=== PATIENT | female | born 1985 | race Caucasian/White ===

== ENCOUNTER 2016-11-11 15:05 | Emergency (ER) | payer OTHER ==
[~2016-11-11 15:05] MED LIST: [UNRECOGNIZED DRUG - OTHER] PO
[2016-11-11 16:37] LABS: CONTROL LINE UCG INT CTR LINE PRESENT
[2016-11-11 16:38] LABS: BASO # 0.1 K/mm3 (0.0-0.2); BASO % 0.9 % (0.0-1.0); EOS # 0.5 K/mm3 (0.0-0.50); EOS % 5.5 % (0.0-3.0); LARGE UNSTAINED CELL # 0.1 K/mm3 (0.0-0.4); LARGE UNSTAINED CELL % 1.5 % (0.0-4.0); LYMPH # 2.4 K/mm3 (1.5-4.5); LYMPH % 25.8 % (24.0-44.0); MEAN CORPUSCULAR HEMOGLOBIN 29.3 pg (27.0-33.0); MEAN CORPUSCULAR HGB CONC 33.2 g/dl (32.0-36.5); MEAN CORPUSCULAR VOLUME 88.3 fl (80.0-96.0); MONO # 0.4 K/mm3 (0.0-0.8); NEUTROPHILS # 5.9 K/mm3 (1.8-7.7); NEUTROPHILS % 62.2 % (36.0-66.0); PLATELET COUNT, AUTOMATED 261 k/mm3 (150-450); RED CELL DISTRIBUTION WIDTH 12.3 % (11.5-14.5); WHITE BLOOD COUNT 9.4 K/mm3 (4.0-10.0)
[2016-11-11 16:47] LABS: ALBUMIN 3.8 GM/DL (3.2-5.2); ALBUMIN/GLOBULIN RATIO 1.19 (1.00-1.93); ALKALINE PHOSPHATASE 50 U/L (45-117); ALT/SGPT 16 U/L (12-78); ANION GAP 5 MEQ/L (8-16); AST/SGOT 11 U/L (15-37); BILIRUBIN,DIRECT < 0.1 MG/DL (0.0-0.2); BILIRUBIN,TOTAL 0.3 MG/DL (0.2-1.0); BLOOD UREA NITROGEN 12 MG/DL (7-18); CARBON DIOXIDE LEVEL 30 MEQ/L (21-32); CHLORIDE LEVEL 107 MEQ/L (98-107); GLOMERULAR FILTRATION RATE > 60.0 (>60); GLUCOSE, FASTING 89 MG/DL (70-105); POTASSIUM SERUM 3.9 MEQ/L (3.5-5.1); SODIUM LEVEL 142 MEQ/L (136-145)
[2016-11-11] MEDS ORDERED: KETOROLAC 30 MG/ML VIAL (J1885) As Ordered ONE (16:52)
[2016-11-11] MEDS ORDERED: ISOVUE-370 76% 100ML VIAL (Q9967) As Ordered ONE (17:18)
--- NOTE | 2016-11-11 17:40 | REPUSA ---
CT of the abdomen and pelvis with contrast Clinical statement: Pain. Technique: Multiple axial CT images were obtained from the base of the lungs through the floor of the pelvis utilizing 5 mm axial slices after administration of nonionic intravenous contrast. Coronal an d sagittal reconstructions were also obtained. No comparison is available. Findings: Chest: The visualized lung bases are clear. Abdomen: The liver, spleen, pancreas, kidneys, gallbladder, and adrenal glands are unremarkable. The aorta is within normal limits. There is no evidence of abdominal lymphadenopathy or ascites. Pelvis: The bowel is unremarkable, with no obstructive or inflammatory changes. The appendix is moody l. The urinary bladder is within normal limits. The other pelvic structures appear grossly intact. Th ere is no evidence of pelvic lymphadenopathy or ascites. Bones: There are no suspicious osseous abnormalities seen. Impression: Unremarkable CT examination of the abdomen and pelvis. The appendix is unremarkable.
--- NOTE | 2016-11-11 18:19 | EDDOCDS ---
Nurse's Notes [facility] Name: Tisha Weiss Age: 31 yrs Sex: Female : 1985 Arrival Date: 11/11/2016 Time: 15:05 Bed I2 / M2 Private MD: Luciano, [facility] Diagnosis: Pelvic and perineal pain Presentation: 11/11 15:08 Presenting complaint: Patient states: RLQ pain for 3 days. has tried Tylenol/Motrin rs3 without relief. denies nausea/vomiting/diarrhea. Risk factors: the patient reports no vaginal bleeding. Adult Sepsis Screening: The patient does not have new or worsening altered mentation. Patient's respiratory rate is less than 22. Systolic blood pressure is greater than 100. Patient has a qSOFA score of 0- Negative Sepsis Screen. Suicide/Homicide risk assessment- the patient denies having any suicidal and/or homicidal ideations and does not present with any other emotional, behavioral or mental health complaints. 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 Transition of care: patient was not received from another setting of care. 15:08 Acuity: JODY Level 3 rs3 15:08 Method Of Arrival: Walkin/Carried/Asstd rs3 Triage Assessment: 15:10 General: Appears in no apparent distress. Pain: Location: right lower quadrant. HIV rs3 screening NA for this visit Offered previously. GI: Reports lower abdominal pain. 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 none - PMHx: none; - PSHx: ; - Social history: Smoking status: Patient uses tobacco products, light tobacco smoker. No barriers to communication noted, The patient speaks fluent Maori. - Family history: Not pertinent. - : The pt / caregiver states he / she is not on anticoagulants. Home medication list is obtained from the patient. - Exposure Risk Screening:: None identified. Screenin:20 Screening information is obtained from the patient. Fall risk: No risks identified. ck1 Assistance ADL's: requires no assistance with activities of daily living. Abuse/DV Screen: The patient / caregiver reports he/she is: not in a situation that causes fear, pain or injury. Nutritional screening: No deficits noted. Advance Directives: Currently, there is no health care proxy. home support is adequate. Assessment: 16:20 General: Appears in no apparent distress, Behavior is appropriate for age, cooperative. ck1 Pain: Location: right lower quadrant Pain currently is 9.5 out of 10 on a pain scale. Neurological: No deficits noted. GI: Abdomen is flat, non- distended Bowel sounds present X 4 quads. Abd is tender to palpation in right lower quadrant Denies constipation, diarrhea, nausea, vomiting. : Denies burning with urination, urinary frequency, vaginal bleeding. Derm: Skin is intact, is healthy with good turgor, Skin is pink, warm & dry. 16:55 General: Appears in no apparent distress, comfortable, Behavior is appropriate for age, jmb cooperative, Patient returned from ultrasound. Patient currently laying in bed, appears comfortable, significant other at bedside. Patient voices no complaints at this time. . Neurological: Level of Consciousness is awake, alert, obeys commands, Oriented to person, place, time, Speech is normal, Facial symmetry appears normal, Facial symmetry: tongue is midline. Cardiovascular: Capillary refill < 3 seconds Heart tones S1 S2 present Pulses are all present. Respiratory: Airway is patent Respiratory effort is even, unlabored, Respiratory pattern is regular, symmetrical. 17:50 General: Appears in no apparent distress, comfortable, Behavior is appropriate for age, jmb cooperative, Patient laying on stretcher with family at bedside. No voiced complaints at this time. . Neurological: Level of Consciousness is awake, alert, obeys commands, Oriented to person, place, time. Respiratory: Airway is patent Respiratory effort is even, unlabored, Respiratory pattern is regular, symmetrical. 18:16 General: Patient instructed on discharge instructions. Patient asked if there were any b questions regarding discharge, patient stated no. IV discontinued per hospital policy. Patient signed discharge instructions. Patient discharged in stable condition. . Vital Signs: 15:07 BP 127 / 68 RA Sitting (auto/lg); Pulse 80; Resp 16; Temp 98.3(O); Pulse Ox 100% on bnb R/A; Weight 58.97 kg; Height 5 ft. 2 in. (157.48 cm); Pain 8/10; 18:14 BP 108 / 73; Pulse 87; Resp 18; Temp 98.1(O); Pulse Ox 100% on R/A; Pain 4/10; elp 15:07 Body Mass Index 23.78 (58.97 kg, 157.48 cm) b Vitals: 15:07 Log In Time: November 11, 2016 at 15:05. bnb ED Course: 15:06 Patient visited by Alondra Osorio PCA. bnb 15:06 Patient moved to Waiting bnb 15:07 [facility] is Private Physician. bnb 15:08 Patient visited by Alondra Osorio PCA. bnb 15:08 Patient moved to Pre RCE bnb 15:10 Triage Initiated rs3 15:11 Patient moved to Triage 1 rs3 16:01 Jabier Hoffman PA is PHCP. mo1 16:02 Socorro Shirley MD is Attending Physician. mo1 16:09 Patient visited by Jabier Hoffman PA. mo1 16:10 Patient moved to I2 / M2 pml 16:12 Urinalysis Sent. ar3 16:12 Urine Test-In Lab Sent. ar3 16:12 Urine Culture Sent. ar3 16:19 Basic Metabolic Profile Sent. ck1 16:19 CBC with Diff Sent. ck1 16:19 Lipase Sent. ck1 16:19 Liver Profile Sent. ck1 16:20 The patient / caregiver is instructed regarding the plan of care and ED course. ck1 16:20 Inserted saline lock: 20 gauge in right antecubital area and blood collected. The ck1 patient tolerated the procedure well. 16:27 Patient moved to Ultrasound hgl 16:48 Patient moved to I2 / M2 hgl 16:56 Patient visited by Seng Osorio RN. jmb 17:29 Patient visited by Ignacia Jacobsen RN. ck1 17:51 Patient visited by Seng Osorio,DAVID. jmb 18:02 [facility] Payment Agreement was scanned into [employer] and attached to record. zo 18:09 [facility] is Referral Physician. mo1 18:14 Patient visited by Tori Duncan PCA. elp 18:16 CT ABD & PELVIS: IV Contrast Only Returned. EDMS 18:16 Discontinued lock intact, bleeding controlled, pressure dressing applied, No jmb redness/swelling at site. No procedures done that require assistance. Administered Medications: 16:17 Drug: NS 0.9% 1000 ml [sodium chloride 0.9 % intravenous solution] Route: IV; Rate: jmb bolus; Site: right antecubital; 16:55 Drug: ketorolac 30 mg [ketorolac 30 mg/mL (1 mL) injection solution (1 mL)] Route: IVP; jmb Site: right antecubital; Order Results: Lab Order: Basic Metabolic Profile; SPEC'M 11/11/16 16:18 Test: GLUCOSE, FASTING; Value: 89; Range: 70-105; Units: MG/DL; Status: F Test: BLOOD UREA NITROGEN; Value: 12; Range: 7-18; Units: MG/DL; Status: F Test: CREATININE FOR GFR; Value: 0.80; Range: 0.55-1.02; Units: MG/DL; Status: F Test: GLOMERULAR FILTRATION RATE; Value: > 60.0; Range: >60; Status: F Test: SODIUM LEVEL; Value: 142; Range: 136-145; Units: MEQ/L; Status: F Test: POTASSIUM SERUM; Value: 3.9; Range: 3.5-5.1; Units: MEQ/L; Status: F Test: CHLORIDE LEVEL; Value: 107; Range: 98-107; Units: MEQ/L; Status: F Test: CARBON DIOXIDE LEVEL; Value: 30; Range: 21-32; Units: MEQ/L; Status: F Test: ANION GAP; Value: 5; Range: 8-16; Abnormal: Below low normal; Units: MEQ/L; Status: F Test: CALCIUM LEVEL; Value: 9.0; Range: 8.5-10.1; Units: MG/DL; Status: F Test Note: ; Units are mL/min/1.73 m2 Chronic Kidney Disease Staging per NKF: Stage I & II GFR >=60 Normal to Mildly Decreased Stage III GFR 30-59 Moderately Decreased Stage IV GFR 15-29 Severely Decreased Stage V GFR <15 Very Little GFR Left ESRD GFR <15 on ASSISTANT FOOD SERVICE DIRECTOR Lab Order: CBC with Diff; SPEC'11/11/16 16:18 Test: WHITE BLOOD COUNT; Value: 9.4; Range: 4.0-10.0; Units: K/mm3; Status: F Test: RED BLOOD COUNT; Value: 4.70; Range: 4.00-5.40; Units: M/mm3; Status: F Test: HEMOGLOBIN; Value: 13.8; Range: 12.0-16.0; Units: g/dl; Status: F Test: HEMATOCRIT; Value: 41.5; Range: 36.0-47.0; Units: %; Status: F Test: MEAN CORPUSCULAR VOLUME; Value: 88.3; Range: 80.0-96.0; Units: fl; Status: F Test: MEAN CORPUSCULAR HEMOGLOBIN; Value: 29.3; Range: 27.0-33.0; Units: pg; Status: F Test: MEAN CORPUSCULAR HGB CONC; Value: 33.2; Range: 32.0-36.5; Units: g/dl; Status: F Test: RED CELL DISTRIBUTION WIDTH; Value: 12.3; Range: 11.5-14.5; Units: %; Status: F Test: PLATELET COUNT, AUTOMATED; Value: 261; Range: 150-450; Units: k/mm3; Status: F Test: NEUTROPHILS %; Value: 62.2; Range: 36.0-66.0; Units: %; Status: F Test: LYMPH %; Value: 25.8; Range: 24.0-44.0; Units: %; Status: F Test: MONO %; Value: 4.0; Range: 0.0-5.0; Units: %; Status: F Test: EOS %; Value: 5.5; Range: 0.0-3.0; Abnormal: Above high normal; Units: %; Status: F Test: BASO %; Value: 0.9; Range: 0.0-1.0; Units: %; Status: F Test: LARGE UNSTAINED CELL %; Value: 1.5; Range: 0.0-4.0; Units: %; Status: F Test: NEUTROPHILS #; Value: 5.9; Range: 1.8-7.7; Units: K/mm3; Status: F Test: LYMPH #; Value: 2.4; Range: 1.5-4.5; Units: K/mm3; Status: F Test: MONO #; Value: 0.4; Range: 0.0-0.8; Units: K/mm3; Status: F Test: EOS #; Value: 0.5; Range: 0.0-0.50; Units: K/mm3; Status: F Test: BASO #; Value: 0.1; Range: 0.0-0.2; Units: K/mm3; Status: F Test: LARGE UNSTAINED CELL #; Value: 0.1; Range: 0.0-0.4; Units: K/mm3; Status: F Lab Order: Lipase; [facility] 11/11/16 16:18 Test: LIPASE; Value: 326; Range: 73-393; Units: U/L; Status: F Lab Order: Liver Profile; [facility] 11/11/16 16:18 Test: AST/SGOT; Value: 11; Range: 15-37; Abnormal: Below low normal; Units: U/L; Status: F Test: ALT/SGPT; Value: 16; Range: 12-78; Units: U/L; Status: F Test: ALKALINE PHOSPHATASE; Value: 50; Range: 45-117; Units: U/L; Status: F Test: BILIRUBIN,TOTAL; Value: 0.3; Range: 0.2-1.0; Units: MG/DL; Status: F Test: BILIRUBIN,DIRECT; Value: < 0.1; Range: 0.0-0.2; Units: MG/DL; Status: F Test: TOTAL PROTEIN; Value: 7.0; Range: 6.4-8.2; Units: GM/DL; Status: F Test: ALBUMIN; Value: 3.8; Range: 3.2-5.2; Units: GM/DL; Status: F Test: ALBUMIN/GLOBULIN RATIO; Value: 1.19; Range: 1.00-1.93; Status: F Lab Order: Urinalysis; [facility] 11/11/16 16:12 Test: APPEARANCE, URINE; Value: CLEAR; Range: CLEAR; Status: F Test: COLOR, URINE; Value: YELLOW; Range: YELLOW; Status: F Test: PH,URINE; Value: 6.0; Range: 5.0-9.0; Units: UNITS; Status: F Test: SPECIFIC GRAVITY URINE AUTO; Value: 1.013; Range: 1.002-1.035; Status: F Test: PROTEIN, URINE AUTO; Value: NEGATIVE; Range: NEGATIVE; Units: mg/dL; Status: F Test: GLUCOSE, URINE (UA) AUTO; Value: NEGATIVE; Range: NEGATIVE; Units: mg/dL; Status: F Test: KETONE, URINE AUTO; Value: NEGATIVE; Range: NEGATIVE; Units: mg/dL; Status: F Test: UROBILINOGEN, URINE AUTO; Value: 0.2; Range: 0.0-2.0; Units: mg/dL; Status: F Test: BILIRUBIN, URINE AUTO; Value: NEGATIVE; Range: NEGATIVE; Status: F Test: NITRITE, URINE AUTO; Value: NEGATIVE; Range: NEGATIVE; Status: F Test: LEUKOCYTE ESTERASE, URINE AUTO; Value: NEGATIVE; Range: NEGATIVE; Status: F Test: BLOOD, URINE BLOOD; Value: NEGATIVE; Range: NEGATIVE; Status: F Test: WBC, URINE AUTO; Value: 1; Range: 0-3; Units: /HPF; Status: F Test: RBC, URINE AUTO; Value: 1; Range: 0-3; Units: /HPF; Status: F Test: BACTERIA, URINE AUTO; Value: NEGATIVE; Range: NEGATIVE; Status: F Test: SQUAMOUS EPITHELIAL CELL UR AU; Value: 1; Range: 0-6; Units: /HPF; Status: F Test: MUCUS, URINE; Value: SMALL; Range: NEGATIVE; Status: F Test: HYALINE CAST, URINE AUTO; Value: 0; Range: 0-1; Units: /LPF; Status: F Lab Order: Urine Test-In Lab; SPEC'M 11/11/16 16:12 Test: URINE PREG TEST; Value: NEGATIVE; Range: NEGATIVE; Status: F Radiology Order: CT ABD & PELVIS: IV Contrast Only Test: CT ABD & PELVIS: IV Contrast Only REASON FOR EXAMINATION: Appendicitis; ; CT of the abdomen and pelvis with contrast; Clinical statement: Pain.; Technique: Multiple axial CT images were obtained from the base of the lungs through the floor of the; pelvis utilizing 5 mm axial slices after administration of nonionic intravenous contrast. Coronal an; d sagittal reconstructions were also obtained.; No comparison is available.; Findings:; Chest: The visualized lung bases are clear.; Abdomen: The liver, spleen, pancreas, kidneys, gallbladder, and adrenal glands are unremarkable. The; aorta is within normal limits. There is no evidence of abdominal lymphadenopathy or ascites.; Pelvis: The bowel is unremarkable, with no obstructive or inflammatory changes. The appendix is moody; l. The urinary bladder is within normal limits. The other pelvic structures appear grossly intact. Th; ere is no evidence of pelvic lymphadenopathy or ascites.; Bones: There are no suspicious osseous abnormalities seen.; Impression: Unremarkable CT examination of the abdomen and pelvis. The appendix is unremarkable.; ; Outcome: 18:09 Discharge ordered by Provider. mo1 18:16 Discharge Assessment: Patient awake, alert and oriented x 3. No cognitive and/or jmb functional deficits noted. Patient verbalized understanding of disposition instructions. Patient awake and alert. obeys commands, Oriented to person, place and time. Patient verbalized understanding of disposition instructions. Patient has no functional deficits. patient administered narcotics - no. The following High Risk Discharge criteria are identified: None. Discharged to home ambulatory, with significant other. Condition: stable Condition: improved. Discharge instructions given to patient, Instructed on discharge instructions, follow up and referral plans. Demonstrated understanding of instructions, Pt was receptive of discharge instructions/ teaching. Ultrasound Study completed. Property sent home with patient. 18:18 CT Study completed. jmb 18:18 Patient left the ED. wally Signatures: Dispatcher [employer] EDMS Ignacia Jacobsen,RN RN ck1 Cecy Henderson Jessica, RN RN Yuni Lion,RN RN rs3 Tabby Davalos, CRAYON PAINTER CRAYON PAINTER ar3 Mellissa HoffmannRN DAVID pml Shama, Harpal luis carlosl Jabier Hoffman PA PA mo1 Tori Duncan, CRAYON PAINTER CRAYON PAINTER Seng Oscar RN RN jmb Becker, Brittney, CRAYON PAINTER CRAYON PAINTER bnb MTDD
--- NOTE | 2016-11-11 18:19 | EDDOCDS ---
Physician Documentation [facility] Name: Tisha Weiss Age: 31 yrs Sex: Female : 1985 Arrival Date: 11/11/2016 Time: 15:05 Bed I2 / M2 Private MD: Laz Wolf [facility] Disposition: 11/11/16 18:09 Discharged to Home/Self Care. Impression: Pelvic and perineal pain. - Condition is Stable. - Discharge Instructions: Abdominal Pain, Adult, Pelvic Pain, Female. - Medication Reconciliation, Local Pharmacy Hours form. - Follow up: Luciano [facility] Seth; When: Call to arrange an appointment; Reason: Recheck today's complaints, Continuance of care. - Problem is new. - Symptoms are unchanged. Historical: - Allergies: no known allergies; - Home Meds: 1. none - PMHx: none; - PSHx: ; - Social history: Smoking status: Patient uses tobacco products, light tobacco smoker. No barriers to communication noted, The patient speaks fluent Kyrgyz. - Family history: Not pertinent. - : The pt / caregiver states he / she is not on anticoagulants. Home medication list is obtained from the patient. - Exposure Risk Screening:: None identified. 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 2 in. (157.48 cm); Pain 8/10; 18:14 BP 108 / 73; Pulse 87; Resp 18; Temp 98.1(O); Pulse Ox 100% on R/A; Pain 4/10; elp 15:07 Body Mass Index 23.78 (58.97 kg, 157.48 cm) bnb MDM: 16:10 NS 0.9% 1000 ml IV at bolus once ordered. mo1 16:10 ketorolac 30 mg IVP once ordered. mo1 16:10 Undress patient appropriately for examination ordered. mo1 16:11 Basic Metabolic Profile Ordered. EDMS 16:11 CBC with Diff Ordered. EDMS 16:11 Lipase Ordered. EDMS 16:11 Liver Profile Ordered. EDMS 16:11 Urinalysis Ordered. EDMS 16:11 Urine Test-In Lab Ordered. EDMS 16:11 Urine Culture Ordered. EDMS 16:11 NOTHING BY MOUTH+DIET ordered. EDMS 16:11 -US Pelvic Non-Ob Complete Ordered. EDMS 16:12 DUPLEX SCAN LIMITED (DOPPLER)+US Ordered. EDMS 16:37 Transvaginal NON- US Ordered. EDMS 16:45 CBC with Diff Reviewed. mo1 16:45 Urinalysis Reviewed. mo1 16:45 Urine Test-In Lab Reviewed. mo1 16:51 Basic Metabolic Profile Reviewed. mo1 16:52 Liver Profile Reviewed. mo1 16:52 Lipase Reviewed. mo1 17:15 CT ABD & PELVIS: IV Contrast Only Ordered. EDMS 17:47 Financial registration complete. zo 18:02 [facility] Payment Agreement was scanned into [employer] and attached to record. zo Administered Medications: 16:17 Drug: NS 0.9% 1000 ml [sodium chloride 0.9 % intravenous solution] Route: IV; Rate: jmb bolus; Site: right antecubital; 16:55 Drug: ketorolac 30 mg [ketorolac 30 mg/mL (1 mL) injection solution (1 mL)] Route: IVP; jmb Site: right antecubital; Signatures: Dispatcher [employer] Ignacia Kelley,RN RN ck1 Cecy Henderson Rosemary, RN RN rs3 Jabier Hoffman PA PA mo1 Seng Osorio RN RN jmb The chart was reviewed and I authenticate all verbal orders and agree with the evaluation and treatment provided.Attachments: 18:02 [facility] Payment Agreement zo MTDD
--- NOTE | 2016-11-12 07:34 | REP ---
PELVIC ULTRASOUND AND ENDOVAGINAL PROBE PELVIC ULTRASOUND: 11/11/2016. Clinical history: Right sided pelvic pain. Comparison: CT abdomen and pelvis 03/27/2015. Findings: Transabdominal images performed with the bladder empty and an endovaginal probe utilized. The uterus is anteverted and measures 8.7 x 4.7 x 6 cm. The central endometrial echogenic stripe is somewhat thickened and it measures up to 16.2 mm. There is no fluid in endometrial cavity or endocervical canal. There is no free fluid in the cul-de-sac. Both ovaries are seen with the right 3.2 x 1.8 x 2.3 cm and the left 3.4 x 2.3 x 2.8 cm. Doppler tracing show resistive index 0.59 on the right and 0.50 on the left, no evidence of torsion. No adjacent fluid. Subcentimeter follicles seen in the ovaries. Exam is somewhat limited due to poor patient pain tolerance during the exam. Impression: 1. The uterus anteverted with somewhat thickened endometrium which appears slightly heterogeneous but limited in evaluation. No fluid in the endometrial cavity or endocervical canal. 2. No uterine mass or contour abnormality. No free fluid in the cul-de-sac. 3. Ovaries fairly symmetric in size with normal blood flow and no adjacent free fluid. No torsion with normal Doppler. Signed by Darryl Das MD 11/12/2016 09:19 A
--- NOTE | 2016-11-13 19:19 | EDDOCDS ---
Physician Documentation [facility] Name: Tisha Weiss Age: 31 yrs Sex: Female : 1985 Arrival Date: 11/11/2016 Time: 15:05 Bed I2 / M2 Private MD: Laz Wolf [facility] Disposition: 11/11/16 18:09 Discharged to Home/Self Care. Impression: Pelvic and perineal pain. - Condition is Stable. - Discharge Instructions: Abdominal Pain, Adult, Pelvic Pain, Female. - Medication Reconciliation, Local Pharmacy Hours form. - Follow up: Luciano [facility] Seth; When: Call to arrange an appointment; Reason: Recheck today's complaints, Continuance of care. - Problem is new. - Symptoms are unchanged. Historical: - Allergies: no known allergies; - Home Meds: 1. none - PMHx: none; - PSHx: ; - Social history: Smoking status: Patient uses tobacco products, light tobacco smoker. No barriers to communication noted, The patient speaks fluent Ukrainian. - Family history: Not pertinent. - : The pt / caregiver states he / she is not on anticoagulants. Home medication list is obtained from the patient. - Exposure Risk Screening:: None identified. 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 2 in. (157.48 cm); Pain 8/10; 18:14 BP 108 / 73; Pulse 87; Resp 18; Temp 98.1(O); Pulse Ox 100% on R/A; Pain 4/10; elp 15:07 Body Mass Index 23.78 (58.97 kg, 157.48 cm) bnb MDM: 16:10 NS 0.9% 1000 ml IV at bolus once ordered. mo1 16:10 ketorolac 30 mg IVP once ordered. mo1 16:10 Undress patient appropriately for examination ordered. mo1 16:11 Basic Metabolic Profile Ordered. EDMS 16:11 CBC with Diff Ordered. EDMS 16:11 Lipase Ordered. EDMS 16:11 Liver Profile Ordered. EDMS 16:11 Urinalysis Ordered. EDMS 16:11 Urine Test-In Lab Ordered. EDMS 16:11 Urine Culture Ordered. EDMS 16:11 NOTHING BY MOUTH+DIET ordered. EDMS 16:11 -US Pelvic Non-Ob Complete Ordered. EDMS 16:12 DUPLEX SCAN LIMITED (DOPPLER)+US Ordered. EDMS 16:37 Transvaginal NON- US Ordered. EDMS 16:45 CBC with Diff Reviewed. mo1 16:45 Urinalysis Reviewed. mo1 16:45 Urine Test-In Lab Reviewed. mo1 16:51 Basic Metabolic Profile Reviewed. mo1 16:52 Liver Profile Reviewed. mo1 16:52 Lipase Reviewed. mo1 17:15 CT ABD & PELVIS: IV Contrast Only Ordered. EDMS 17:47 Financial registration complete. zo 18:02 [facility] Payment Agreement was scanned into [employer] and attached to record. zo 11/12 11:10 T-Sheet-- Draft Copy was scanned into [employer] and attached to record. gb 11:10 Radiology Report was scanned into [employer] and attached to record. gb Administered Medications: 02 16:17 Drug: NS 0.9% 1000 ml [sodium chloride 0.9 % intravenous solution] Route: IV; Rate: jmb bolus; Site: right antecubital; 16:55 Drug: ketorolac 30 mg [ketorolac 30 mg/mL (1 mL) injection solution (1 mL)] Route: IVP; jmb Site: right antecubital; Signatures: Dispatcher [employer] EDKaylyn Mar, Reg Reg gb Ignacia JacobsenRN RN ck1 Cecy Henderson RosemaryRN RN rs3 Jabier Hoffman PA PA mo1 Seng Osorio RN RN janetteb The chart was reviewed and I authenticate all verbal orders and agree with the evaluation and treatment provided.Attachments: 18:02 [facility] Payment Agreement zo 11/12 11:10 T-Sheet-- Draft Copy gb Chart Complete MTDD
--- NOTE | 2016-11-13 19:19 | EDDOCDS ---
Nurse's Notes [facility] Name: Tisha Weiss Age: 31 yrs Sex: Female : 1985 Arrival Date: 11/11/2016 Time: 15:05 Bed I2 / M2 Private MD: Luciano, [facility] Diagnosis: Pelvic and perineal pain Presentation: 11/11 15:08 Presenting complaint: Patient states: RLQ pain for 3 days. has tried Tylenol/Motrin rs3 without relief. denies nausea/vomiting/diarrhea. Risk factors: the patient reports no vaginal bleeding. Adult Sepsis Screening: The patient does not have new or worsening altered mentation. Patient's respiratory rate is less than 22. Systolic blood pressure is greater than 100. Patient has a qSOFA score of 0- Negative Sepsis Screen. Suicide/Homicide risk assessment- the patient denies having any suicidal and/or homicidal ideations and does not present with any other emotional, behavioral or mental health complaints. 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 Transition of care: patient was not received from another setting of care. 15:08 Acuity: JODY Level 3 rs3 15:08 Method Of Arrival: Walkin/Carried/Asstd rs3 Triage Assessment: 15:10 General: Appears in no apparent distress. Pain: Location: right lower quadrant. HIV rs3 screening NA for this visit Offered previously. GI: Reports lower abdominal pain. 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 none - PMHx: none; - PSHx: ; - Social history: Smoking status: Patient uses tobacco products, light tobacco smoker. No barriers to communication noted, The patient speaks fluent Danish. - Family history: Not pertinent. - : The pt / caregiver states he / she is not on anticoagulants. Home medication list is obtained from the patient. - Exposure Risk Screening:: None identified. Screenin:20 Screening information is obtained from the patient. Fall risk: No risks identified. ck1 Assistance ADL's: requires no assistance with activities of daily living. Abuse/DV Screen: The patient / caregiver reports he/she is: not in a situation that causes fear, pain or injury. Nutritional screening: No deficits noted. Advance Directives: Currently, there is no health care proxy. home support is adequate. Assessment: 16:20 General: Appears in no apparent distress, Behavior is appropriate for age, cooperative. ck1 Pain: Location: right lower quadrant Pain currently is 9.5 out of 10 on a pain scale. Neurological: No deficits noted. GI: Abdomen is flat, non- distended Bowel sounds present X 4 quads. Abd is tender to palpation in right lower quadrant Denies constipation, diarrhea, nausea, vomiting. : Denies burning with urination, urinary frequency, vaginal bleeding. Derm: Skin is intact, is healthy with good turgor, Skin is pink, warm & dry. 16:55 General: Appears in no apparent distress, comfortable, Behavior is appropriate for age, jmb cooperative, Patient returned from ultrasound. Patient currently laying in bed, appears comfortable, significant other at bedside. Patient voices no complaints at this time. . Neurological: Level of Consciousness is awake, alert, obeys commands, Oriented to person, place, time, Speech is normal, Facial symmetry appears normal, Facial symmetry: tongue is midline. Cardiovascular: Capillary refill < 3 seconds Heart tones S1 S2 present Pulses are all present. Respiratory: Airway is patent Respiratory effort is even, unlabored, Respiratory pattern is regular, symmetrical. 17:50 General: Appears in no apparent distress, comfortable, Behavior is appropriate for age, jmb cooperative, Patient laying on stretcher with family at bedside. No voiced complaints at this time. . Neurological: Level of Consciousness is awake, alert, obeys commands, Oriented to person, place, time. Respiratory: Airway is patent Respiratory effort is even, unlabored, Respiratory pattern is regular, symmetrical. 18:16 General: Patient instructed on discharge instructions. Patient asked if there were any b questions regarding discharge, patient stated no. IV discontinued per hospital policy. Patient signed discharge instructions. Patient discharged in stable condition. . Vital Signs: 15:07 BP 127 / 68 RA Sitting (auto/lg); Pulse 80; Resp 16; Temp 98.3(O); Pulse Ox 100% on bnb R/A; Weight 58.97 kg; Height 5 ft. 2 in. (157.48 cm); Pain 8/10; 18:14 BP 108 / 73; Pulse 87; Resp 18; Temp 98.1(O); Pulse Ox 100% on R/A; Pain 4/10; elp 15:07 Body Mass Index 23.78 (58.97 kg, 157.48 cm) b Vitals: 15:07 Log In Time: November 11, 2016 at 15:05. bnb ED Course: 15:06 Patient visited by Alondra Osorio PCA. bnb 15:06 Patient moved to Waiting bnb 15:07 [facility] is Private Physician. bnb 15:08 Patient visited by Alondra Osorio PCA. bnb 15:08 Patient moved to Pre RCE bnb 15:10 Triage Initiated rs3 15:11 Patient moved to Triage 1 rs3 16:01 Jabier Hoffman PA is PHCP. mo1 16:02 Socorro Shirley MD is Attending Physician. mo1 16:09 Patient visited by Jabier Hoffman PA. mo1 16:10 Patient moved to I2 / M2 pml 16:12 Urinalysis Sent. ar3 16:12 Urine Test-In Lab Sent. ar3 16:12 Urine Culture Sent. ar3 16:19 Basic Metabolic Profile Sent. ck1 16:19 CBC with Diff Sent. ck1 16:19 Lipase Sent. ck1 16:19 Liver Profile Sent. ck1 16:20 The patient / caregiver is instructed regarding the plan of care and ED course. ck1 16:20 Inserted saline lock: 20 gauge in right antecubital area and blood collected. The ck1 patient tolerated the procedure well. 16:27 Patient moved to Ultrasound hgl 16:48 Patient moved to I2 / M2 hgl 16:56 Patient visited by Seng Osorio,DAVID. jmb 17:29 Patient visited by Ignacia Jacobsen RN. ck1 17:51 Patient visited by Seng Osorio,DAVID. jmb 18:02 [facility] Payment Agreement was scanned into myinfoQ and attached to record. zo 18:09 [facility] is Referral Physician. mo1 18:14 Patient visited by Tori Duncan PCA. elp 18:16 CT ABD & PELVIS: IV Contrast Only Returned. EDMS 18:16 Discontinued lock intact, bleeding controlled, pressure dressing applied, No jmb redness/swelling at site. No procedures done that require assistance. 11/12 07:46 -US Pelvic Non-Ob Complete Returned. EDMS 11:10 T-Sheet-- Draft Copy was scanned into myinfoQ and attached to record. gb 11:10 Radiology Report was scanned into myinfoQ and attached to record. gb Administered Medications: 11/11 16:17 Drug: NS 0.9% 1000 ml [sodium chloride 0.9 % intravenous solution] Route: IV; Rate: jmb bolus; Site: right antecubital; 16:55 Drug: ketorolac 30 mg [ketorolac 30 mg/mL (1 mL) injection solution (1 mL)] Route: IVP; jmb Site: right antecubital; Order Results: Lab Order: Basic Metabolic Profile; SPEC'M 11/11/16 16:18 Test: GLUCOSE, FASTING; Value: 89; Range: 70-105; Units: MG/DL; Status: F Test: BLOOD UREA NITROGEN; Value: 12; Range: 7-18; Units: MG/DL; Status: F Test: CREATININE FOR GFR; Value: 0.80; Range: 0.55-1.02; Units: MG/DL; Status: F Test: GLOMERULAR FILTRATION RATE; Value: > 60.0; Range: >60; Status: F Test: SODIUM LEVEL; Value: 142; Range: 136-145; Units: MEQ/L; Status: F Test: POTASSIUM SERUM; Value: 3.9; Range: 3.5-5.1; Units: MEQ/L; Status: F Test: CHLORIDE LEVEL; Value: 107; Range: 98-107; Units: MEQ/L; Status: F Test: CARBON DIOXIDE LEVEL; Value: 30; Range: 21-32; Units: MEQ/L; Status: F Test: ANION GAP; Value: 5; Range: 8-16; Abnormal: Below low normal; Units: MEQ/L; Status: F Test: CALCIUM LEVEL; Value: 9.0; Range: 8.5-10.1; Units: MG/DL; Status: F Test Note: ; Units are mL/min/1.73 m2 Chronic Kidney Disease Staging per NKF: Stage I & II GFR >=60 Normal to Mildly Decreased Stage III GFR 30-59 Moderately Decreased Stage IV GFR 15-29 Severely Decreased Stage V GFR <15 Very Little GFR Left ESRD GFR <15 on DSP ENGINEER Lab Order: CBC with Diff; SPEC'M 11/11/16 16:18 Test: WHITE BLOOD COUNT; Value: 9.4; Range: 4.0-10.0; Units: K/mm3; Status: F Test: RED BLOOD COUNT; Value: 4.70; Range: 4.00-5.40; Units: M/mm3; Status: F Test: HEMOGLOBIN; Value: 13.8; Range: 12.0-16.0; Units: g/dl; Status: F Test: HEMATOCRIT; Value: 41.5; Range: 36.0-47.0; Units: %; Status: F Test: MEAN CORPUSCULAR VOLUME; Value: 88.3; Range: 80.0-96.0; Units: fl; Status: F Test: MEAN CORPUSCULAR HEMOGLOBIN; Value: 29.3; Range: 27.0-33.0; Units: pg; Status: F Test: MEAN CORPUSCULAR HGB CONC; Value: 33.2; Range: 32.0-36.5; Units: g/dl; Status: F Test: RED CELL DISTRIBUTION WIDTH; Value: 12.3; Range: 11.5-14.5; Units: %; Status: F Test: PLATELET COUNT, AUTOMATED; Value: 261; Range: 150-450; Units: k/mm3; Status: F Test: NEUTROPHILS %; Value: 62.2; Range: 36.0-66.0; Units: %; Status: F Test: LYMPH %; Value: 25.8; Range: 24.0-44.0; Units: %; Status: F Test: MONO %; Value: 4.0; Range: 0.0-5.0; Units: %; Status: F Test: EOS %; Value: 5.5; Range: 0.0-3.0; Abnormal: Above high normal; Units: %; Status: F Test: BASO %; Value: 0.9; Range: 0.0-1.0; Units: %; Status: F Test: LARGE UNSTAINED CELL %; Value: 1.5; Range: 0.0-4.0; Units: %; Status: F Test: NEUTROPHILS #; Value: 5.9; Range: 1.8-7.7; Units: K/mm3; Status: F Test: LYMPH #; Value: 2.4; Range: 1.5-4.5; Units: K/mm3; Status: F Test: MONO #; Value: 0.4; Range: 0.0-0.8; Units: K/mm3; Status: F Test: EOS #; Value: 0.5; Range: 0.0-0.50; Units: K/mm3; Status: F Test: BASO #; Value: 0.1; Range: 0.0-0.2; Units: K/mm3; Status: F Test: LARGE UNSTAINED CELL #; Value: 0.1; Range: 0.0-0.4; Units: K/mm3; Status: F Lab Order: Lipase; [facility] 11/11/16 16:18 Test: LIPASE; Value: 326; Range: 73-393; Units: U/L; Status: F Lab Order: Liver Profile; [facility] 11/11/16 16:18 Test: AST/SGOT; Value: 11; Range: 15-37; Abnormal: Below low normal; Units: U/L; Status: F Test: ALT/SGPT; Value: 16; Range: 12-78; Units: U/L; Status: F Test: ALKALINE PHOSPHATASE; Value: 50; Range: 45-117; Units: U/L; Status: F Test: BILIRUBIN,TOTAL; Value: 0.3; Range: 0.2-1.0; Units: MG/DL; Status: F Test: BILIRUBIN,DIRECT; Value: < 0.1; Range: 0.0-0.2; Units: MG/DL; Status: F Test: TOTAL PROTEIN; Value: 7.0; Range: 6.4-8.2; Units: GM/DL; Status: F Test: ALBUMIN; Value: 3.8; Range: 3.2-5.2; Units: GM/DL; Status: F Test: ALBUMIN/GLOBULIN RATIO; Value: 1.19; Range: 1.00-1.93; Status: F Lab Order: Urinalysis; [facility] 11/11/16 16:12 Test: APPEARANCE, URINE; Value: CLEAR; Range: CLEAR; Status: F Test: COLOR, URINE; Value: YELLOW; Range: YELLOW; Status: F Test: PH,URINE; Value: 6.0; Range: 5.0-9.0; Units: UNITS; Status: F Test: SPECIFIC GRAVITY URINE AUTO; Value: 1.013; Range: 1.002-1.035; Status: F Test: PROTEIN, URINE AUTO; Value: NEGATIVE; Range: NEGATIVE; Units: mg/dL; Status: F Test: GLUCOSE, URINE (UA) AUTO; Value: NEGATIVE; Range: NEGATIVE; Units: mg/dL; Status: F Test: KETONE, URINE AUTO; Value: NEGATIVE; Range: NEGATIVE; Units: mg/dL; Status: F Test: UROBILINOGEN, URINE AUTO; Value: 0.2; Range: 0.0-2.0; Units: mg/dL; Status: F Test: BILIRUBIN, URINE AUTO; Value: NEGATIVE; Range: NEGATIVE; Status: F Test: NITRITE, URINE AUTO; Value: NEGATIVE; Range: NEGATIVE; Status: F Test: LEUKOCYTE ESTERASE, URINE AUTO; Value: NEGATIVE; Range: NEGATIVE; Status: F Test: BLOOD, URINE BLOOD; Value: NEGATIVE; Range: NEGATIVE; Status: F Test: WBC, URINE AUTO; Value: 1; Range: 0-3; Units: /HPF; Status: F Test: RBC, URINE AUTO; Value: 1; Range: 0-3; Units: /HPF; Status: F Test: BACTERIA, URINE AUTO; Value: NEGATIVE; Range: NEGATIVE; Status: F Test: SQUAMOUS EPITHELIAL CELL UR AU; Value: 1; Range: 0-6; Units: /HPF; Status: F Test: MUCUS, URINE; Value: SMALL; Range: NEGATIVE; Status: F Test: HYALINE CAST, URINE AUTO; Value: 0; Range: 0-1; Units: /LPF; Status: F Lab Order: Urine Test-In Lab; SPEC'M 11/11/16 16:12 Test: URINE PREG TEST; Value: NEGATIVE; Range: NEGATIVE; Status: F Lab Order: Urine Culture; SPEC'M 11/11/16 16:12 Test: URINE CULTURE; Value: <EXTERNAL COMMENT eCWMed> FULL REPORT IN LAB NOTES (eCW and Medent).; Status: F Test: URINE CULTURE; Value: ORGANISM 1: ESCHERICHIA COLI; Status: F Test: URINE CULTURE; Value: ESCHERICHIA COLI; Status: F Test: URINE CULTURE; Value: COLONY COUNT CFU/ml 100,000; Status: F Test: URINE CULTURE; Value: GRAM NEG SENSI - VITEK 80; Status: F Test: URINE CULTURE; Value: Method: VIT2; Status: F Test: URINE CULTURE; Value: EXTD BRD SPCTRM BETA LACTAMASE -; Status: F Test: URINE CULTURE; Value: TRIMETHOPRIM/SULFAMETHOXAZOLE <=20 S; Status: F Test: URINE CULTURE; Value: AMPICILLIN <=2 S; Status: F Test: URINE CULTURE; Value: GENTAMICIN <=1 S; Status: F Test: URINE CULTURE; Value: NITROFURANTOIN <=16 S; Status: F Test: URINE CULTURE; Value: CEFAZOLIN <=4 S; Status: F Test: URINE CULTURE; Value: LEVOFLOXACIN <=0.12 S; Status: F Test: URINE CULTURE; Value: TOBRAMYCIN <=1 S; Status: F Test: URINE CULTURE; Value: CEFTRIAXONE <=1 S; Status: F Test: URINE CULTURE; Value: CEFTAZIDIME <=1 S; Status: F Test: URINE CULTURE; Value: AMPICILLIN/SULBACTAM <=2 S; Status: F Test: URINE CULTURE; Value: PIPERACILLIN/TAZOBACTAM <=4 S; Status: F Test: URINE CULTURE; Value: AZTREONAM <=1 S; Status: F Test: URINE CULTURE; Value: ERTAPENEM <=0.5 S; Status: F Test: URINE CULTURE; Value: MEROPENEM <=0.25 S; Status: F Test: URINE CULTURE; Value: TIGECYCLINE <=0.5 S; Status: F Test: URINE CULTURE; Value: CEFEPIME <=1 S; Status: F Radiology Order: -US Pelvic Non-Ob Complete Test: -US Pelvic Non-Ob Complete REASON FOR EXAMINATION: right pelvic pain; PELVIC ULTRASOUND AND ENDOVAGINAL PROBE PELVIC ULTRASOUND: 11/11/2016.; ; Clinical history: Right sided pelvic pain.; ; Comparison: CT abdomen and pelvis 03/27/2015.; ; Findings: Transabdominal images performed with the bladder empty and an; endovaginal probe utilized. The uterus is anteverted and measures 8.7 x 4.7 x 6; cm. The central endometrial echogenic stripe is somewhat thickened and it; measures up to 16.2 mm. There is no fluid in endometrial cavity or endocervical; canal. There is no free fluid in the cul-de-sac. Both ovaries are seen with the; right 3.2 x 1.8 x 2.3 cm and the left 3.4 x 2.3 x 2.8 cm. Doppler tracing show; resistive index 0.59 on the right and 0.50 on the left, no evidence of torsion.; No adjacent fluid. Subcentimeter follicles seen in the ovaries.; ; Exam is somewhat limited due to poor patient pain tolerance during the exam.; ; Impression:; ; 1. The uterus anteverted with somewhat thickened endometrium which appears; slightly heterogeneous but limited in evaluation. No fluid in the endometrial; cavity or endocervical canal.; ; 2. No uterine mass or contour abnormality. No free fluid in the cul-de-sac.; ; 3. Ovaries fairly symmetric in size with normal blood flow and no adjacent free; fluid. No torsion with normal Doppler.; ; ; Signed by; Darryl Das MD 11/12/2016 09:19 A; Radiology Order: CT ABD & PELVIS: IV Contrast Only Test: CT ABD & PELVIS: IV Contrast Only REASON FOR EXAMINATION: Appendicitis; ; CT of the abdomen and pelvis with contrast; Clinical statement: Pain.; Technique: Multiple axial CT images were obtained from the base of the lungs through the floor of the; pelvis utilizing 5 mm axial slices after administration of nonionic intravenous contrast. Coronal an; d sagittal reconstructions were also obtained.; No comparison is available.; Findings:; Chest: The visualized lung bases are clear.; Abdomen: The liver, spleen, pancreas, kidneys, gallbladder, and adrenal glands are unremarkable. The; aorta is within normal limits. There is no evidence of abdominal lymphadenopathy or ascites.; Pelvis: The bowel is unremarkable, with no obstructive or inflammatory changes. The appendix is moody; l. The urinary bladder is within normal limits. The other pelvic structures appear grossly intact. Th; ere is no evidence of pelvic lymphadenopathy or ascites.; Bones: There are no suspicious osseous abnormalities seen.; Impression: Unremarkable CT examination of the abdomen and pelvis. The appendix is unremarkable.; ; Outcome: 18:09 Discharge ordered by Provider. mo1 18:16 Discharge Assessment: Patient awake, alert and oriented x 3. No cognitive and/or jmb functional deficits noted. Patient verbalized understanding of disposition instructions. Patient awake and alert. obeys commands, Oriented to person, place and time. Patient verbalized understanding of disposition instructions. Patient has no functional deficits. patient administered narcotics - no. The following High Risk Discharge criteria are identified: None. Discharged to home ambulatory, with significant other. Condition: stable Condition: improved. Discharge instructions given to patient, Instructed on discharge instructions, follow up and referral plans. Demonstrated understanding of instructions, Pt was receptive of discharge instructions/ teaching. Ultrasound Study completed. Property sent home with patient. 18:18 CT Study completed. jmb 18:18 Patient left the ED. wally Signatures: Dispatcher [employer] EDMS Kaylyn Rizzo, Reg Reg gb Ignacia Jacobsen,RN RN ck1 Cecy Henderson Jessica, RN RN Yuni LionRN RN rs3 Tabby Davalos, GLOBAL CEO GLOBAL CEO ar3 Mellissa Hoffmann,RN RN pml Shama, Harpal aldridgel Jabier Hoffman PA PA mo1 Tori Duncan, GLOBAL CEO GLOBAL CEO Seng Oscar RN RN jmb Becker, Brittney, GLOBAL CEO GLOBAL CEO rustamb Chart Complete MTDMohsen
--- NOTE | 2016-11-13 19:19 | EDDOCDS ---
Physician Documentation [facility] Name: Tisha Weiss Age: 31 yrs Sex: Female : 1985 Arrival Date: 11/11/2016 Time: 15:05 Bed I2 / M2 Private MD: Laz Wolf [facility] Disposition: 11/11/16 18:09 Discharged to Home/Self Care. Impression: Pelvic and perineal pain. - Condition is Stable. - Discharge Instructions: Abdominal Pain, Adult, Pelvic Pain, Female. - Medication Reconciliation, Local Pharmacy Hours form. - Follow up: Luciano [facility]; When: Call to arrange an appointment; Reason: Recheck today's complaints, Continuance of care. - Problem is new. - Symptoms are unchanged. Historical: - Allergies: no known allergies; - Home Meds: 1. none - PMHx: none; - PSHx: ; - Social history: Smoking status: Patient uses tobacco products, light tobacco smoker. No barriers to communication noted, The patient speaks fluent Macedonian. - Family history: Not pertinent. - : The pt / caregiver states he / she is not on anticoagulants. Home medication list is obtained from the patient. - Exposure Risk Screening:: None identified. 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 2 in. (157.48 cm); Pain 8/10; 18:14 BP 108 / 73; Pulse 87; Resp 18; Temp 98.1(O); Pulse Ox 100% on R/A; Pain 4/10; elp 15:07 Body Mass Index 23.78 (58.97 kg, 157.48 cm) bnb MDM: 16:10 NS 0.9% 1000 ml IV at bolus once ordered. mo1 16:10 ketorolac 30 mg IVP once ordered. mo1 16:10 Undress patient appropriately for examination ordered. mo1 16:11 Basic Metabolic Profile Ordered. EDMS 16:11 CBC with Diff Ordered. EDMS 16:11 Lipase Ordered. EDMS 16:11 Liver Profile Ordered. EDMS 16:11 Urinalysis Ordered. EDMS 16:11 Urine Test-In Lab Ordered. EDMS 16:11 Urine Culture Ordered. EDMS 16:11 NOTHING BY MOUTH+DIET ordered. EDMS 16:11 -US Pelvic Non-Ob Complete Ordered. EDMS 16:12 DUPLEX SCAN LIMITED (DOPPLER)+US Ordered. EDMS 16:37 Transvaginal NON- US Ordered. EDMS 16:45 CBC with Diff Reviewed. mo1 16:45 Urinalysis Reviewed. mo1 16:45 Urine Test-In Lab Reviewed. mo1 16:51 Basic Metabolic Profile Reviewed. mo1 16:52 Liver Profile Reviewed. mo1 16:52 Lipase Reviewed. mo1 17:15 CT ABD & PELVIS: IV Contrast Only Ordered. EDMS 17:47 Financial registration complete. zo 18:02 [facility] Payment Agreement was scanned into iMove and attached to record. zo 11/12 11:10 T-Sheet-- Draft Copy was scanned into iMove and attached to record. gb 11:10 Radiology Report was scanned into iMove and attached to record. gb Administered Medications: 02 16:17 Drug: NS 0.9% 1000 ml [sodium chloride 0.9 % intravenous solution] Route: IV; Rate: jmb bolus; Site: right antecubital; 16:55 Drug: ketorolac 30 mg [ketorolac 30 mg/mL (1 mL) injection solution (1 mL)] Route: IVP; jmb Site: right antecubital; Signatures: Dispatcher MedHo EDKaylyn Mar, Reg Reg gb Ignacia JacobsenRN RN ck1 Cecy Henderson RosemaryRN RN rs3 Jabier Hoffman PA PA mo1 Seng Osorio RN RN janetteb The chart was reviewed and I authenticate all verbal orders and agree with the evaluation and treatment provided.Attachments: 18:02 [facility] Payment Agreement zo 11/12 11:10 T-Sheet-- Draft Copy gb Chart Complete MTDD
--- NOTE | 2016-11-16 17:27 | EDDOCDS ---
Physician Documentation [facility] Name: Tisha Weiss Age: 31 yrs Sex: Female : 1985 Arrival Date: 11/11/2016 Time: 15:05 Bed I2 / M2 Private MD: Laz Wolf [facility] Disposition: 11/11/16 18:09 Discharged to Home/Self Care. Impression: Pelvic and perineal pain. - Condition is Stable. - Discharge Instructions: Abdominal Pain, Adult, Pelvic Pain, Female. - Medication Reconciliation, Local Pharmacy Hours form. - Follow up: Luciano [facility]; When: Call to arrange an appointment; Reason: Recheck today's complaints, Continuance of care. - Problem is new. - Symptoms are unchanged. Historical: - Allergies: no known allergies; - Home Meds: 1. none - PMHx: none; - PSHx: ; - Social history: Smoking status: Patient uses tobacco products, light tobacco smoker. No barriers to communication noted, The patient speaks fluent Arabic. - Family history: Not pertinent. - : The pt / caregiver states he / she is not on anticoagulants. Home medication list is obtained from the patient. - Exposure Risk Screening:: None identified. 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 2 in. (157.48 cm); Pain 8/10; 18:14 BP 108 / 73; Pulse 87; Resp 18; Temp 98.1(O); Pulse Ox 100% on R/A; Pain 4/10; elp 15:07 Body Mass Index 23.78 (58.97 kg, 157.48 cm) bnb MDM: 16:10 NS 0.9% 1000 ml IV at bolus once ordered. mo1 16:10 ketorolac 30 mg IVP once ordered. mo1 16:10 Undress patient appropriately for examination ordered. mo1 16:11 Basic Metabolic Profile Ordered. EDMS 16:11 CBC with Diff Ordered. EDMS 16:11 Lipase Ordered. EDMS 16:11 Liver Profile Ordered. EDMS 16:11 Urinalysis Ordered. EDMS 16:11 Urine Test-In Lab Ordered. EDMS 16:11 Urine Culture Ordered. EDMS 16:11 NOTHING BY MOUTH+DIET ordered. EDMS 16:11 -US Pelvic Non-Ob Complete Ordered. EDMS 16:12 DUPLEX SCAN LIMITED (DOPPLER)+US Ordered. EDMS 16:37 Transvaginal NON- US Ordered. EDMS 16:45 CBC with Diff Reviewed. mo1 16:45 Urinalysis Reviewed. mo1 16:45 Urine Test-In Lab Reviewed. mo1 16:51 Basic Metabolic Profile Reviewed. mo1 16:52 Liver Profile Reviewed. mo1 16:52 Lipase Reviewed. mo1 17:15 CT ABD & PELVIS: IV Contrast Only Ordered. EDMS 17:47 Financial registration complete. zo 18:02 [facility] Payment Agreement was scanned into View3 and attached to record. zo 11/12 11:10 T-Sheet-- Draft Copy was scanned into View3 and attached to record. gb 11:10 Radiology Report was scanned into View3 and attached to record. gb Administered Medications: 02 16:17 Drug: NS 0.9% 1000 ml [sodium chloride 0.9 % intravenous solution] Route: IV; Rate: jmb bolus; Site: right antecubital; 16:55 Drug: ketorolac 30 mg [ketorolac 30 mg/mL (1 mL) injection solution (1 mL)] Route: IVP; jmb Site: right antecubital; Signatures: Dispatcher MedHo EDKaylyn Mar, Reg Reg gb Ignacia JacobsenRN RN ck1 Cecy Henderson RosemaryRN RN rs3 Jabier Hoffman PA PA mo1 Seng Osorio RN RN janetteb The chart was reviewed and I authenticate all verbal orders and agree with the evaluation and treatment provided.Attachments: 18:02 [facility] Payment Agreement zo 11/12 11:10 T-Sheet-- Draft Copy gb Chart Complete MTDD
--- NOTE | 2016-11-16 17:27 | EDDOCDS ---
Physician Documentation [facility] Name: Tisha Wesis Age: 31 yrs Sex: Female : 1985 Arrival Date: 11/11/2016 Time: 15:05 Bed I2 / M2 Private MD: Laz Wolf [facility] Disposition: 11/11/16 18:09 Discharged to Home/Self Care. Impression: Pelvic and perineal pain. - Condition is Stable. - Discharge Instructions: Abdominal Pain, Adult, Pelvic Pain, Female. - Medication Reconciliation, Local Pharmacy Hours form. - Follow up: Luciano [facility]; When: Call to arrange an appointment; Reason: Recheck today's complaints, Continuance of care. - Problem is new. - Symptoms are unchanged. Historical: - Allergies: no known allergies; - Home Meds: 1. none - PMHx: none; - PSHx: ; - Social history: Smoking status: Patient uses tobacco products, light tobacco smoker. No barriers to communication noted, The patient speaks fluent Latvian. - Family history: Not pertinent. - : The pt / caregiver states he / she is not on anticoagulants. Home medication list is obtained from the patient. - Exposure Risk Screening:: None identified. 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 2 in. (157.48 cm); Pain 8/10; 18:14 BP 108 / 73; Pulse 87; Resp 18; Temp 98.1(O); Pulse Ox 100% on R/A; Pain 4/10; elp 15:07 Body Mass Index 23.78 (58.97 kg, 157.48 cm) bnb MDM: 16:10 NS 0.9% 1000 ml IV at bolus once ordered. mo1 16:10 ketorolac 30 mg IVP once ordered. mo1 16:10 Undress patient appropriately for examination ordered. mo1 16:11 Basic Metabolic Profile Ordered. EDMS 16:11 CBC with Diff Ordered. EDMS 16:11 Lipase Ordered. EDMS 16:11 Liver Profile Ordered. EDMS 16:11 Urinalysis Ordered. EDMS 16:11 Urine Test-In Lab Ordered. EDMS 16:11 Urine Culture Ordered. EDMS 16:11 NOTHING BY MOUTH+DIET ordered. EDMS 16:11 -US Pelvic Non-Ob Complete Ordered. EDMS 16:12 DUPLEX SCAN LIMITED (DOPPLER)+US Ordered. EDMS 16:37 Transvaginal NON- US Ordered. EDMS 16:45 CBC with Diff Reviewed. mo1 16:45 Urinalysis Reviewed. mo1 16:45 Urine Test-In Lab Reviewed. mo1 16:51 Basic Metabolic Profile Reviewed. mo1 16:52 Liver Profile Reviewed. mo1 16:52 Lipase Reviewed. mo1 17:15 CT ABD & PELVIS: IV Contrast Only Ordered. EDMS 17:47 Financial registration complete. zo 18:02 [facility] Payment Agreement was scanned into [employer] and attached to record. zo 11/12 11:10 T-Sheet-- Draft Copy was scanned into Vettery and attached to record. gb 11:10 Radiology Report was scanned into Vet[employer] and attached to record. gb Administered Medications: 02 16:17 Drug: NS 0.9% 1000 ml [sodium chloride 0.9 % intravenous solution] Route: IV; Rate: jmb bolus; Site: right antecubital; 16:55 Drug: ketorolac 30 mg [ketorolac 30 mg/mL (1 mL) injection solution (1 mL)] Route: IVP; jmb Site: right antecubital; Signatures: Dispatcher MedHo EDKaylyn Mar, Reg Reg gb Ignacia JacobsenRN RN ck1 Cecy Henderson RosemaryRN RN rs3 Jabier Hoffman PA PA mo1 Seng Osorio RN RN janetteb The chart was reviewed and I authenticate all verbal orders and agree with the evaluation and treatment provided.Attachments: 18:02 [facility] Payment Agreement zo 11/12 11:10 T-Sheet-- Draft Copy gb Chart Complete MTDD
--- NOTE | 2016-11-16 17:27 | EDDOCDS ---
Nurse's Notes [facility] Name: Tisha Weiss Age: 31 yrs Sex: Female : 1985 Arrival Date: 11/11/2016 Time: 15:05 Bed I2 / M2 Private MD: Luciano, [facility] Diagnosis: Pelvic and perineal pain Presentation: 11/11 15:08 Presenting complaint: Patient states: RLQ pain for 3 days. has tried Tylenol/Motrin rs3 without relief. denies nausea/vomiting/diarrhea. Risk factors: the patient reports no vaginal bleeding. Adult Sepsis Screening: The patient does not have new or worsening altered mentation. Patient's respiratory rate is less than 22. Systolic blood pressure is greater than 100. Patient has a qSOFA score of 0- Negative Sepsis Screen. Suicide/Homicide risk assessment- the patient denies having any suicidal and/or homicidal ideations and does not present with any other emotional, behavioral or mental health complaints. Status: Patient is not a student services rep or dependent. Transition of care: patient was not received from another setting of care. 15:08 Acuity: JODY Level 3 rs3 15:08 Method Of Arrival: Walkin/Carried/Asstd rs3 Triage Assessment: 15:10 General: Appears in no apparent distress. Pain: Location: right lower quadrant. HIV rs3 screening NA for this visit Offered previously. GI: Reports lower abdominal pain. REROLLER HAND: 15:13 LMP 10/14/2016 jjr Historical: - Allergies: no known allergies; - Home Meds: 1. none - PMHx: none; - PSHx: ; - Social history: Smoking status: Patient uses tobacco products, light tobacco smoker. No barriers to communication noted, The patient speaks fluent Belarusian. - Family history: Not pertinent. - : The pt / caregiver states he / she is not on anticoagulants. Home medication list is obtained from the patient. - Exposure Risk Screening:: None identified. Screenin:20 Screening information is obtained from the patient. Fall risk: No risks identified. ck1 Assistance ADL's: requires no assistance with activities of daily living. Abuse/DV Screen: The patient / caregiver reports he/she is: not in a situation that causes fear, pain or injury. Nutritional screening: No deficits noted. Advance Directives: Currently, there is no health care proxy. home support is adequate. Assessment: 16:20 General: Appears in no apparent distress, Behavior is appropriate for age, cooperative. ck1 Pain: Location: right lower quadrant Pain currently is 9.5 out of 10 on a pain scale. Neurological: No deficits noted. GI: Abdomen is flat, non- distended Bowel sounds present X 4 quads. Abd is tender to palpation in right lower quadrant Denies constipation, diarrhea, nausea, vomiting. : Denies burning with urination, urinary frequency, vaginal bleeding. Derm: Skin is intact, is healthy with good turgor, Skin is pink, warm & dry. 16:55 General: Appears in no apparent distress, comfortable, Behavior is appropriate for age, jmb cooperative, Patient returned from ultrasound. Patient currently laying in bed, appears comfortable, significant other at bedside. Patient voices no complaints at this time. . Neurological: Level of Consciousness is awake, alert, obeys commands, Oriented to person, place, time, Speech is normal, Facial symmetry appears normal, Facial symmetry: tongue is midline. Cardiovascular: Capillary refill < 3 seconds Heart tones S1 S2 present Pulses are all present. Respiratory: Airway is patent Respiratory effort is even, unlabored, Respiratory pattern is regular, symmetrical. 17:50 General: Appears in no apparent distress, comfortable, Behavior is appropriate for age, jmb cooperative, Patient laying on stretcher with family at bedside. No voiced complaints at this time. . Neurological: Level of Consciousness is awake, alert, obeys commands, Oriented to person, place, time. Respiratory: Airway is patent Respiratory effort is even, unlabored, Respiratory pattern is regular, symmetrical. 18:16 General: Patient instructed on discharge instructions. Patient asked if there were any b questions regarding discharge, patient stated no. IV discontinued per hospital policy. Patient signed discharge instructions. Patient discharged in stable condition. . Vital Signs: 15:07 BP 127 / 68 RA Sitting (auto/lg); Pulse 80; Resp 16; Temp 98.3(O); Pulse Ox 100% on bnb R/A; Weight 58.97 kg; Height 5 ft. 2 in. (157.48 cm); Pain 8/10; 18:14 BP 108 / 73; Pulse 87; Resp 18; Temp 98.1(O); Pulse Ox 100% on R/A; Pain 4/10; elp 15:07 Body Mass Index 23.78 (58.97 kg, 157.48 cm) b Vitals: 15:07 Log In Time: November 11, 2016 at 15:05. bnb ED Course: 15:06 Patient visited by Alondra Osorio PCA. bnb 15:06 Patient moved to Waiting bnb 15:07 [facility] is Private Physician. bnb 15:08 Patient visited by Alondra Osorio PCA. bnb 15:08 Patient moved to Pre RCE bnb 15:10 Triage Initiated rs3 15:11 Patient moved to Triage 1 rs3 16:01 Jabier Hoffman PA is PHCP. mo1 16:02 Socorro Shirley MD is Attending Physician. mo1 16:09 Patient visited by Jabier Hoffman PA. mo1 16:10 Patient moved to I2 / M2 pml 16:12 Urinalysis Sent. ar3 16:12 Urine Test-In Lab Sent. ar3 16:12 Urine Culture Sent. ar3 16:19 Basic Metabolic Profile Sent. ck1 16:19 CBC with Diff Sent. ck1 16:19 Lipase Sent. ck1 16:19 Liver Profile Sent. ck1 16:20 The patient / caregiver is instructed regarding the plan of care and ED course. ck1 16:20 Inserted saline lock: 20 gauge in right antecubital area and blood collected. The ck1 patient tolerated the procedure well. 16:27 Patient moved to Ultrasound hgl 16:48 Patient moved to I2 / M2 hgl 16:56 Patient visited by Seng Osorio,DAVID. jmb 17:29 Patient visited by Ignacia Jacobsen RN. ck1 17:51 Patient visited by Seng Osorio,DAVID. jmb 18:02 [facility] Payment Agreement was scanned into E[employer] and attached to record. zo 18:09 [facility] is Referral Physician. mo1 18:14 Patient visited by Tori Duncan PCA. elp 18:16 CT ABD & PELVIS: IV Contrast Only Returned. EDMS 18:16 Discontinued lock intact, bleeding controlled, pressure dressing applied, No jmb redness/swelling at site. No procedures done that require assistance. 11/12 07:46 -US Pelvic Non-Ob Complete Returned. EDMS 11:10 T-Sheet-- Draft Copy was scanned into Ecomsual and attached to record. gb 11:10 Radiology Report was scanned into E[employer]sual and attached to record. gb Administered Medications: 11/11 16:17 Drug: NS 0.9% 1000 ml [sodium chloride 0.9 % intravenous solution] Route: IV; Rate: jmb bolus; Site: right antecubital; 16:55 Drug: ketorolac 30 mg [ketorolac 30 mg/mL (1 mL) injection solution (1 mL)] Route: IVP; jmb Site: right antecubital; Order Results: Lab Order: Basic Metabolic Profile; SPEC'M 11/11/16 16:18 Test: GLUCOSE, FASTING; Value: 89; Range: 70-105; Units: MG/DL; Status: F Test: BLOOD UREA NITROGEN; Value: 12; Range: 7-18; Units: MG/DL; Status: F Test: CREATININE FOR GFR; Value: 0.80; Range: 0.55-1.02; Units: MG/DL; Status: F Test: GLOMERULAR FILTRATION RATE; Value: > 60.0; Range: >60; Status: F Test: SODIUM LEVEL; Value: 142; Range: 136-145; Units: MEQ/L; Status: F Test: POTASSIUM SERUM; Value: 3.9; Range: 3.5-5.1; Units: MEQ/L; Status: F Test: CHLORIDE LEVEL; Value: 107; Range: 98-107; Units: MEQ/L; Status: F Test: CARBON DIOXIDE LEVEL; Value: 30; Range: 21-32; Units: MEQ/L; Status: F Test: ANION GAP; Value: 5; Range: 8-16; Abnormal: Below low normal; Units: MEQ/L; Status: F Test: CALCIUM LEVEL; Value: 9.0; Range: 8.5-10.1; Units: MG/DL; Status: F Test Note: ; Units are mL/min/1.73 m2 Chronic Kidney Disease Staging per NKF: Stage I & II GFR >=60 Normal to Mildly Decreased Stage III GFR 30-59 Moderately Decreased Stage IV GFR 15-29 Severely Decreased Stage V GFR <15 Very Little GFR Left ESRD GFR <15 on [employer] Lab Order: CBC with Diff; SPEC'M 11/11/16 16:18 Test: WHITE BLOOD COUNT; Value: 9.4; Range: 4.0-10.0; Units: K/mm3; Status: F Test: RED BLOOD COUNT; Value: 4.70; Range: 4.00-5.40; Units: M/mm3; Status: F Test: HEMOGLOBIN; Value: 13.8; Range: 12.0-16.0; Units: g/dl; Status: F Test: HEMATOCRIT; Value: 41.5; Range: 36.0-47.0; Units: %; Status: F Test: MEAN CORPUSCULAR VOLUME; Value: 88.3; Range: 80.0-96.0; Units: fl; Status: F Test: MEAN CORPUSCULAR HEMOGLOBIN; Value: 29.3; Range: 27.0-33.0; Units: pg; Status: F Test: MEAN CORPUSCULAR HGB CONC; Value: 33.2; Range: 32.0-36.5; Units: g/dl; Status: F Test: RED CELL DISTRIBUTION WIDTH; Value: 12.3; Range: 11.5-14.5; Units: %; Status: F Test: PLATELET COUNT, AUTOMATED; Value: 261; Range: 150-450; Units: k/mm3; Status: F Test: NEUTROPHILS %; Value: 62.2; Range: 36.0-66.0; Units: %; Status: F Test: LYMPH %; Value: 25.8; Range: 24.0-44.0; Units: %; Status: F Test: MONO %; Value: 4.0; Range: 0.0-5.0; Units: %; Status: F Test: EOS %; Value: 5.5; Range: 0.0-3.0; Abnormal: Above high normal; Units: %; Status: F Test: BASO %; Value: 0.9; Range: 0.0-1.0; Units: %; Status: F Test: LARGE UNSTAINED CELL %; Value: 1.5; Range: 0.0-4.0; Units: %; Status: F Test: NEUTROPHILS #; Value: 5.9; Range: 1.8-7.7; Units: K/mm3; Status: F Test: LYMPH #; Value: 2.4; Range: 1.5-4.5; Units: K/mm3; Status: F Test: MONO #; Value: 0.4; Range: 0.0-0.8; Units: K/mm3; Status: F Test: EOS #; Value: 0.5; Range: 0.0-0.50; Units: K/mm3; Status: F Test: BASO #; Value: 0.1; Range: 0.0-0.2; Units: K/mm3; Status: F Test: LARGE UNSTAINED CELL #; Value: 0.1; Range: 0.0-0.4; Units: K/mm3; Status: F Lab Order: Lipase; [facility] 11/11/16 16:18 Test: LIPASE; Value: 326; Range: 73-393; Units: U/L; Status: F Lab Order: Liver Profile; [facility] 11/11/16 16:18 Test: AST/SGOT; Value: 11; Range: 15-37; Abnormal: Below low normal; Units: U/L; Status: F Test: ALT/SGPT; Value: 16; Range: 12-78; Units: U/L; Status: F Test: ALKALINE PHOSPHATASE; Value: 50; Range: 45-117; Units: U/L; Status: F Test: BILIRUBIN,TOTAL; Value: 0.3; Range: 0.2-1.0; Units: MG/DL; Status: F Test: BILIRUBIN,DIRECT; Value: < 0.1; Range: 0.0-0.2; Units: MG/DL; Status: F Test: TOTAL PROTEIN; Value: 7.0; Range: 6.4-8.2; Units: GM/DL; Status: F Test: ALBUMIN; Value: 3.8; Range: 3.2-5.2; Units: GM/DL; Status: F Test: ALBUMIN/GLOBULIN RATIO; Value: 1.19; Range: 1.00-1.93; Status: F Lab Order: Urinalysis; [facility] 11/11/16 16:12 Test: APPEARANCE, URINE; Value: CLEAR; Range: CLEAR; Status: F Test: COLOR, URINE; Value: YELLOW; Range: YELLOW; Status: F Test: PH,URINE; Value: 6.0; Range: 5.0-9.0; Units: UNITS; Status: F Test: SPECIFIC GRAVITY URINE AUTO; Value: 1.013; Range: 1.002-1.035; Status: F Test: PROTEIN, URINE AUTO; Value: NEGATIVE; Range: NEGATIVE; Units: mg/dL; Status: F Test: GLUCOSE, URINE (UA) AUTO; Value: NEGATIVE; Range: NEGATIVE; Units: mg/dL; Status: F Test: KETONE, URINE AUTO; Value: NEGATIVE; Range: NEGATIVE; Units: mg/dL; Status: F Test: UROBILINOGEN, URINE AUTO; Value: 0.2; Range: 0.0-2.0; Units: mg/dL; Status: F Test: BILIRUBIN, URINE AUTO; Value: NEGATIVE; Range: NEGATIVE; Status: F Test: NITRITE, URINE AUTO; Value: NEGATIVE; Range: NEGATIVE; Status: F Test: LEUKOCYTE ESTERASE, URINE AUTO; Value: NEGATIVE; Range: NEGATIVE; Status: F Test: BLOOD, URINE BLOOD; Value: NEGATIVE; Range: NEGATIVE; Status: F Test: WBC, URINE AUTO; Value: 1; Range: 0-3; Units: /HPF; Status: F Test: RBC, URINE AUTO; Value: 1; Range: 0-3; Units: /HPF; Status: F Test: BACTERIA, URINE AUTO; Value: NEGATIVE; Range: NEGATIVE; Status: F Test: SQUAMOUS EPITHELIAL CELL UR AU; Value: 1; Range: 0-6; Units: /HPF; Status: F Test: MUCUS, URINE; Value: SMALL; Range: NEGATIVE; Status: F Test: HYALINE CAST, URINE AUTO; Value: 0; Range: 0-1; Units: /LPF; Status: F Lab Order: Urine Test-In Lab; SPEC'M 11/11/16 16:12 Test: URINE PREG TEST; Value: NEGATIVE; Range: NEGATIVE; Status: F Lab Order: Urine Culture; SPEC'M 11/11/16 16:12 Test: URINE CULTURE; Value: <EXTERNAL COMMENT eCWMed> FULL REPORT IN LAB NOTES (eCW and Medent).; Status: F Test: URINE CULTURE; Value: ORGANISM 1: ESCHERICHIA COLI; Status: F Test: URINE CULTURE; Value: ESCHERICHIA COLI; Status: F Test: URINE CULTURE; Value: COLONY COUNT CFU/ml 100,000; Status: F Test: URINE CULTURE; Value: GRAM NEG SENSI - VITEK 80; Status: F Test: URINE CULTURE; Value: Method: VIT2; Status: F Test: URINE CULTURE; Value: EXTD BRD SPCTRM BETA LACTAMASE -; Status: F Test: URINE CULTURE; Value: TRIMETHOPRIM/SULFAMETHOXAZOLE <=20 S; Status: F Test: URINE CULTURE; Value: AMPICILLIN <=2 S; Status: F Test: URINE CULTURE; Value: GENTAMICIN <=1 S; Status: F Test: URINE CULTURE; Value: NITROFURANTOIN <=16 S; Status: F Test: URINE CULTURE; Value: CEFAZOLIN <=4 S; Status: F Test: URINE CULTURE; Value: LEVOFLOXACIN <=0.12 S; Status: F Test: URINE CULTURE; Value: TOBRAMYCIN <=1 S; Status: F Test: URINE CULTURE; Value: CEFTRIAXONE <=1 S; Status: F Test: URINE CULTURE; Value: CEFTAZIDIME <=1 S; Status: F Test: URINE CULTURE; Value: AMPICILLIN/SULBACTAM <=2 S; Status: F Test: URINE CULTURE; Value: PIPERACILLIN/TAZOBACTAM <=4 S; Status: F Test: URINE CULTURE; Value: AZTREONAM <=1 S; Status: F Test: URINE CULTURE; Value: ERTAPENEM <=0.5 S; Status: F Test: URINE CULTURE; Value: MEROPENEM <=0.25 S; Status: F Test: URINE CULTURE; Value: TIGECYCLINE <=0.5 S; Status: F Test: URINE CULTURE; Value: CEFEPIME <=1 S; Status: F Radiology Order: -US Pelvic Non-Ob Complete Test: -US Pelvic Non-Ob Complete REASON FOR EXAMINATION: right pelvic pain; PELVIC ULTRASOUND AND ENDOVAGINAL PROBE PELVIC ULTRASOUND: 11/11/2016.; ; Clinical history: Right sided pelvic pain.; ; Comparison: CT abdomen and pelvis 03/27/2015.; ; Findings: Transabdominal images performed with the bladder empty and an; endovaginal probe utilized. The uterus is anteverted and measures 8.7 x 4.7 x 6; cm. The central endometrial echogenic stripe is somewhat thickened and it; measures up to 16.2 mm. There is no fluid in endometrial cavity or endocervical; canal. There is no free fluid in the cul-de-sac. Both ovaries are seen with the; right 3.2 x 1.8 x 2.3 cm and the left 3.4 x 2.3 x 2.8 cm. Doppler tracing show; resistive index 0.59 on the right and 0.50 on the left, no evidence of torsion.; No adjacent fluid. Subcentimeter follicles seen in the ovaries.; ; Exam is somewhat limited due to poor patient pain tolerance during the exam.; ; Impression:; ; 1. The uterus anteverted with somewhat thickened endometrium which appears; slightly heterogeneous but limited in evaluation. No fluid in the endometrial; cavity or endocervical canal.; ; 2. No uterine mass or contour abnormality. No free fluid in the cul-de-sac.; ; 3. Ovaries fairly symmetric in size with normal blood flow and no adjacent free; fluid. No torsion with normal Doppler.; ; ; Signed by; Darryl Das MD 11/12/2016 09:19 A; Radiology Order: CT ABD & PELVIS: IV Contrast Only Test: CT ABD & PELVIS: IV Contrast Only REASON FOR EXAMINATION: Appendicitis; ; CT of the abdomen and pelvis with contrast; Clinical statement: Pain.; Technique: Multiple axial CT images were obtained from the base of the lungs through the floor of the; pelvis utilizing 5 mm axial slices after administration of nonionic intravenous contrast. Coronal an; d sagittal reconstructions were also obtained.; No comparison is available.; Findings:; Chest: The visualized lung bases are clear.; Abdomen: The liver, spleen, pancreas, kidneys, gallbladder, and adrenal glands are unremarkable. The; aorta is within normal limits. There is no evidence of abdominal lymphadenopathy or ascites.; Pelvis: The bowel is unremarkable, with no obstructive or inflammatory changes. The appendix is moody; l. The urinary bladder is within normal limits. The other pelvic structures appear grossly intact. Th; ere is no evidence of pelvic lymphadenopathy or ascites.; Bones: There are no suspicious osseous abnormalities seen.; Impression: Unremarkable CT examination of the abdomen and pelvis. The appendix is unremarkable.; ; Outcome: 18:09 Discharge ordered by Provider. mo1 18:16 Discharge Assessment: Patient awake, alert and oriented x 3. No cognitive and/or jmb functional deficits noted. Patient verbalized understanding of disposition instructions. Patient awake and alert. obeys commands, Oriented to person, place and time. Patient verbalized understanding of disposition instructions. Patient has no functional deficits. patient administered narcotics - no. The following High Risk Discharge criteria are identified: None. Discharged to home ambulatory, with significant other. Condition: stable Condition: improved. Discharge instructions given to patient, Instructed on discharge instructions, follow up and referral plans. Demonstrated understanding of instructions, Pt was receptive of discharge instructions/ teaching. Ultrasound Study completed. Property sent home with patient. 18:18 CT Study completed. jmb 18:18 Patient left the ED. wally Signatures: Dispatcher [employer] EDMS Kaylyn Rizzo, Reg Reg gb Ignacia Jacobsen,RN RN ck1 Cecy Henderson Jessica, RN RN Yuni LionRN RN rs3 Tabby Davalos, RIGHT OF WAY MAN RIGHT OF WAY MAN ar3 Mellissa Hoffmann,RN RN pml Shama, Harpal aldridgel Jabier Hoffman PA PA mo1 Tori Duncan, RIGHT OF WAY MAN RIGHT OF WAY MAN Seng Oscar RN RN jmb Becker, Brittney, RIGHT OF WAY MAN RIGHT OF WAY MAN rustamb Chart Complete MTDMohsen
== END 2016-11-11 18:18 | disposition home or self-care (01) ==
LOC: M ED 15:05
DX: N85.00 Endometrial hyperplasia, unspecified (principal); R10.31 Right lower quadrant pain; R10.2 Pelvic and perineal pain; F17.200 Nicotine dependence, unspecified, uncomplicated

== ENCOUNTER 2017-12-06 17:20 | Emergency (ER) | payer OTHER ==
[2017-12-06 19:58] LABS: KETONE, URINE AUTO RFX NEGATIVE (NEGATIVE); MUCUS, URINE RFX SMALL (NEGATIVE); NITRITE, URINE AUTO RFX NEGATIVE (NEGATIVE); RBC, URINE AUTO RFX 3 /HPF (0-3); SPECIFIC GRAVITY UR AUTO RFX 1.016 (1.002-1.035); SQUAM EPITHELIAL CELL UR AURFX 1 /HPF (0-6); WBC, URINE AUTO RFX 5 /HPF (0-3)
[2017-12-06 19:59] LABS: LEUKOCYTE ESTERASE UR AUTO RFX 2+ (NEGATIVE)
[2017-12-06 20:02] LABS: BASO # 0.1 10^3/uL (0.0-0.2); BASO % 0.7 % (0.0-1.0); CONTROL LINE UCG INT CTR LINE PRESENT; EOS # 0.5 10^3/uL (0.0-0.50); EOS % 5.9 % (0.0-3.0); HEMATOCRIT 38.7 % (36.0-47.0); IMMATURE GRANULOCYTE % 0.1 % (0-3.0); LYMPH # 3.3 10^3/uL (1.5-4.5); LYMPH % 35.9 % (24.0-44.0); MEAN CORPUSCULAR HEMOGLOBIN 30.1 pg (27.0-33.0); MEAN CORPUSCULAR HGB CONC 33.6 g/dl (32.0-36.5); MEAN CORPUSCULAR VOLUME 89.6 fl (80.0-96.0); MONO # 0.7 10^3/uL (0.0-0.8); MONO % 7.3 % (0.0-5.0); NEUTROPHILS # 4.6 10^3/uL (1.8-7.7); NEUTROPHILS % 50.1 % (36.0-66.0); PLATELET COUNT, AUTOMATED 291 10^3/uL (150-450); RED BLOOD COUNT 4.32 10^6/uL (4.00-5.40); URINE PREG TEST NEGATIVE (NEGATIVE); WHITE BLOOD COUNT 9.1 10^3/uL (4.0-10.0)
[2017-12-06] MEDS: KETOROLAC 30 MG/ML VIAL (J1885) IV (20:15)
[2017-12-06 20:22] LABS: ANION GAP 7 MEQ/L (8-16); BLOOD UREA NITROGEN 8 MG/DL (7-18); CALCIUM LEVEL 8.9 MG/DL (8.5-10.1); CARBON DIOXIDE LEVEL 28 MEQ/L (21-32); CHLORIDE LEVEL 105 MEQ/L (98-107); CREATININE FOR GFR 0.85 MG/DL (0.55-1.30); GLOMERULAR FILTRATION RATE > 60.0 (>60); GLUCOSE, FASTING 92 MG/DL (70-100); POTASSIUM SERUM 3.8 MEQ/L (3.5-5.1); SODIUM LEVEL 140 MEQ/L (136-145)
[2017-12-06 21:36] LABS: CHLAMYDIA DNA AMPLIFICATION NEGATIVE (NEGATIVE); GC DNA AMPLIFICATION NEGATIVE (NEGATIVE)
[2017-12-06] MEDS ORDERED: LIDOCAINE 1% MDV 20ML VIAL As Ordered (22:05)
[2017-12-06] MEDS: DOXYCYCLINE HYCLATE 100 MG TAB PO (22:09)
[2017-12-06] MEDS: cefTRIAXone SOD 250 MG VIAL (J0696) IV (22:09)
== END 2017-12-06 22:36 | disposition home or self-care (01) ==
LOC: M ED 17:20
DX: N83.201 Unspecified ovarian cyst, right side (principal); N73.9 Female pelvic inflammatory disease, unspecified
CPT/HCPCS: J0696

== ENCOUNTER 2019-06-08 11:12 | Emergency (ER) | payer OTHER ==
[~2019-06-08] VITALS: Ht 157.5 cm; Wt 63.6 kg
[~2019-06-08 11:12] MED LIST changes: +DOXY100C37 PO; +IBUP80TA PO
[2019-06-08 12:07] LABS: BASO # 0.1 10^3/uL (0.0-0.2); EOS # 0.3 10^3/uL (0.0-0.5); EOS % 3.3 % (0.0-3.0); HEMATOCRIT 41.2 % (36.0-47.0); HEMOGLOBIN 14.1 g/dl (12.0-15.5); LYMPH % 24.2 % (24.0-44.0); MEAN CORPUSCULAR HGB CONC 34.2 g/dl (32.0-36.5); MEAN CORPUSCULAR VOLUME 90.5 fl (80.0-96.0); MONO # 0.5 10^3/uL (0.0-0.8); MONO % 6.2 % (0.0-5.0); NEUTROPHILS # 5.3 10^3/uL (1.5-8.5); NEUTROPHILS % 64.9 % (36.0-66.0); PLATELET COUNT, AUTOMATED 250 10^3/uL (150-450); RED BLOOD COUNT 4.55 10^6/uL (4.00-5.40); WHITE BLOOD COUNT 8.1 10^3/uL (4.0-10.0)
[2019-06-08 12:30] LABS: ALT/SGPT 13 U/L (12-78); BILIRUBIN,DIRECT 0.1 MG/DL (0.0-0.2); BILIRUBIN,TOTAL 0.3 MG/DL (0.2-1.0); BLOOD UREA NITROGEN 11 MG/DL (7-18); CALCIUM LEVEL 9.3 MG/DL (8.5-10.1); CARBON DIOXIDE LEVEL 27 MEQ/L (21-32); CHLORIDE LEVEL 107 MEQ/L (98-107); CREATININE FOR GFR 0.84 MG/DL (0.55-1.30); GLOMERULAR FILTRATION RATE > 60.0 (>60); GLUCOSE, FASTING 93 MG/DL (70-100); LIPASE 177 U/L (73-393); SODIUM LEVEL 143 MEQ/L (136-145); TOTAL PROTEIN 6.9 GM/DL (6.4-8.2)
[2019-06-08 13:03] LABS: HCG, SERUM QUALITATIVE NEGATIVE (NEGATIVE)
[2019-06-08] MEDS ORDERED: KETOROLAC 30 MG/ML VIAL (J1885) IV ONE (14:00)
[2019-06-08] MEDS ORDERED: NS 1,000 ML IV ONE (14:15)
[2019-06-08] MEDS ORDERED: ISOVUE-370 76% 100ML VIAL (Q9967) As Ordered ONE (15:12)
[2019-06-08 16:24] VITALS: BP 104/66
--- NOTE | 2019-06-09 07:27 | REP ---
PELVIC ULTRASOUND: Real-time sonographic evaluation of the pelvis performed. Transabdominal technique is utilized. The urinary bladder measures 6.6 x 4.2 x. 9.0 cm. The uterus measures 9.3 x 4.5 x 5.6 cm. The endometrial thickness is 5 mm. Right ovary measures 5.4 x 2.8 x 3.1 cm and left ovary 4.1 x 2.1 x 2.4 cm. Complex cystic structure of the right ovary demonstrates a thick wall and internal thick septation. It measures 2.6. X 1.3 x 2.2 cm and probably represents a complex dominant follicle/small complex cyst. Otherwise, no other mass or cyst is seen of either ovary. There is no ovarian torsion, RI right ovary is 0.64 and left ovary 0.62. No significant free fluid is seen. IMPRESSION: Small complex cystic structure right ovary 2.6 x 1.3 x 2.2 cm demonstrating thickened wall and a thickened internal septation. Otherwise, no cyst or free fluid. No torsion. Electronically Signed by Vincenzo Hamilton MD 06/10/2019 10:09 A
--- NOTE | 2019-06-09 07:47 | REP ---
CT ABDOMEN AND PELVIS WITH IV BUT WITHOUT ORAL CONTRAST: HISTORY: Left lower quadrant pain. CT CONTRAST DOSE: 100 mL of intravenous Isovue [address] study is reviewed from November 11, 2016 and March 27, 2015. CT FINDINGS: Digital preliminary card brusher radiograph shows an unremarkable bowel gas pattern. An IUD is seen projecting in the pelvis. Axial CT images demonstrate that the lung bases are essentially clear. There is no evidence of pleural effusion. The liver and the spleen are normal in size homogeneous in texture. There is an accessory splenule adjacent to the tail of the pancreas. Pancreas shows no abnormality. No abnormality is noted in the gallbladder. No adrenal lesion is seen on either side. No retroperitoneal mass or adenopathy is observed. The kidneys enhance symmetrically and are morphologically intact. Small bowel loops are unremarkable in the abdomen and pelvis. There is mural thickening affecting the descending colon diffusely and the splenic colon. Sigmoid colon wall appears normal and unaffected. The findings may reflect enterocolitis. There is an IUD in the pelvis, however this appears to be malpositioned along the ventral aspect of the lower uterine segment (intramural versus subserosal in position). No ovarian mass lesion is seen. Normal appendix is noted in the right lower quadrant. Urinary bladder is unremarkable. IMPRESSION: 1. Mural thickening in the left colon from splenic flexure through descending segment consistent with enterocolitis. 2. Malpositioned intrauterine device along the volar aspect of the lower uterine segment, subserosal versus intramural in position. 3. Normal appendix. Electronically Signed by Radames Covington MD 06/09/2019 09:08 A
== END 2019-06-08 16:36 | disposition home or self-care (01) ==
LOC: EDBD 11:12 → M ED 11:12
DX: K52.9 Noninfective gastroenteritis and colitis, unspecified (principal); N83.201 Unspecified ovarian cyst, right side
CPT/HCPCS: 74177; 76856; 80048; 80076; 81001; 83690; 84703; 85025; 93041; 96361; 96374; 99285; J1885; Q9967

== ENCOUNTER 2023-09-29 13:36 | Emergency (ER) | payer OTHER ==
[~2023-09-29] VITALS: Ht 157.5 cm; Wt 70.1 kg
[~2023-09-29 13:36] MED LIST changes: +DOXY-443 PO; -DOXY100C37 PO
[2023-09-29] MEDS ORDERED: TIZA10TA (13:50)
[2023-09-29] MEDS ORDERED: CYCL5TAB (13:50)
[2023-09-29] MEDS ORDERED: METH4PACK (13:50)
[2023-09-29 15:56] VITALS: BP 106/63; TEMP 98.8; O2SAT 98
[2023-09-29] MEDS ORDERED: KETOROLAC 60MG 2ML VIAL IM ONE (16:30)
[2023-09-29] MEDS ORDERED: CYCLOBENZAPRINE 10MG TABLET PO ONE (16:30)
[2023-09-29] MEDS ORDERED: LIDOCAINE 5% (LIDODERM) PATCH TD ONE (16:30)
[2023-09-29] MEDS ORDERED: CYCL-707 PO (17:47)
[2023-09-29] MEDS ORDERED: LIDO5DIS41 TOP (17:47)
== END 2023-09-29 17:54 | disposition home or self-care (01) ==
LOC: M ED 13:36
DX: S30.0XXA Contusion of lower back and pelvis, initial encounter (principal); W10.9XXA Fall (on) (from) unspecified stairs and steps, initial encounter; Y92.009 Unspecified place in unspecified non-institutional (private) residence as the place of occurrence of the external cause; Y99.8 Other external cause status; Y93.9 Activity, unspecified; F17.290 Nicotine dependence, other tobacco product, uncomplicated; Z79.1 Long term (current) use of non-steroidal anti-inflammatories (NSAID)
CPT/HCPCS: 72110; 96372; 99283; J1885

== ENCOUNTER 2024-12-28 19:06 | Emergency (ER) | payer OTHER ==
[~2024-12-28] VITALS: Ht 157.5 cm; Wt 67.7 kg
[~2024-12-28 19:06] MED LIST changes: +CYCL-707 PO; +CYCL5TAB4; +DOXY-441 PO; -DOXY-443 PO; +LIDO5DIS41 TOP; +METH4PACK; +TIZA10TA
[2024-12-28 23:46] VITALS: BP 101/65; TEMP 98.7; O2SAT 100
== END 2024-12-29 00:27 | disposition left against medical advice (07) ==
LOC: M ED 19:06
DX: Z53.21 Procedure and treatment not carried out due to patient leaving prior to being seen by health care provider (principal)